=== PATIENT | female | born 1985 | race American Indian/Alaskan Native ===

== ENCOUNTER 2016-05-18 05:26 | Emergency (ER) | payer OTHER ==
[2016-05-18 06:26] LABS: Basophils % (Auto) 0.9 % (0.0-1.8); Eosinophils % (Auto) 0.4 % (0.0-4.3); Hematocrit 33.9 % (30.3-42.9); Hemoglobin 10.9 gm/dl (10.1-14.3); Mean Corpuscular HGB Conc 32 % (30-34); Mean Corpuscular Volume 80 fl (79-97); Platelet Count 382 K/mm3 (140-440); Red Blood Count 4.22 M/mm3 (3.65-5.03); Red Cell Distribution Width 17.3 % (13.2-15.2); White Blood Count 15.8 K/mm3 (4.5-11.0)
[2016-05-18 06:27] LABS: Mean Corpuscular Hemoglobin 26 pg (28-32)
[2016-05-18 06:41] LABS: Alanine Aminotransferase 157 units/L (7-56); Albumin 3.6 g/dL (3.9-5); Albumin/Globulin Ratio 0.9 %; Alkaline Phosphatase 167 units/L (35-129); Anion Gap 24 mmol/L; Bilirubin,Total 0.4 mg/dL (0.1-1.2); Blood Urea Nitrogen 11 mg/dL (7-17); Calcium 8.7 mg/dL (8.4-10.2); Carbon Dioxide 22 mmol/L (22-30); Chloride 89.9 mmol/L (98-107); Glucose 482 mg/dL (65-100); Lipase 21 units/L (13-60); Potassium 3.6 mmol/L (3.6-5.0); Sodium 132 mmol/L (137-145); Total Protein 7.6 g/dL (6.3-8.2)
[2016-05-18 10:22] LABS: Bilirubin,Urine NEG (Negative); Blood,Urine LG (Negative); Ketones,Urine 80 mg/dL (Negative); Leukocyte Esterase,Urine SM (Negative); Mucus,Urine FEW /HPF; Nitrite,Urine NEG (Negative); Urobilinogen,Urine < 2.0 mg/dL (<2.0)
[2016-05-18 10:25] LABS: WBC,Urine > 182.0 /HPF (0.0-6.0)
[2016-05-18] MEDS ORDERED: ZOFRAN IV ONE (10:48)
[2016-05-18] MEDS ORDERED: MORPHINE IV ONE (10:48)
[2016-05-18] MEDS ORDERED: NACL 0.9% 1000 ML 1,000 ML IV ONE (10:48)
--- NOTE | 2016-05-18 10:52 | Emergency Department Report ---
ED General Adult HPI - General Chief complaint: Abdominal Pain Stated complaint: HYPERGLYCEMIA Time Seen by Provider: 05/18/16 08:19 Source: EMS Mode of arrival: Stretcher Limitations: No Limitations - History of Present Illness Initial comments: 31-year-old female presents to the emergency department via EMS complaining of back pain. Patient reports the onset of lower back pain at approximately 8 PM last night. Patient describes a sharp pain that does not radiate. She reports associated nausea and vomiting. EMS reports that the patient had an elevated blood sugar of 442. There are no other complaints. -: Sudden, Last night Time: 20:00 Location: back Radiation: non-radiation Severity scale (0 -10): 6 Quality: aching Consistency: constant Improves with: none Worsens with: none Associated Symptoms: nausea/vomiting Treatments Prior to Arrival: none - Related Data Previous Rx's Medication Instructions Recorded Last Taken Type HYDROcodone/APAP 5-325 [[place] 1 each PO Q6HR PRN #20 tablet 05/18/16 Unknown Rx 5/325] Nitrofurantoin [place]/M-Cryst 100 mg PO Q12HR #14 capsule 05/18/16 Unknown Rx [Macrobid CAP] Promethazine [Phenergan TAB] 25 mg PO Q6HR PRN #20 tab 05/18/16 Unknown Rx Allergies Allergy/AdvReac Type Severity Reaction Status Date / Time No Known Allergies Allergy Unverified 05/18/16 05:51 ED Review of Systems ROS: Stated complaint: HYPERGLYCEMIA Other details as noted in HPI Comment: All other systems reviewed and negative Gastrointestinal: nausea, vomiting Musculoskeletal: back pain ED Past Medical Hx - Past Medical History Previous Medical History?: Yes Hx Hypertension: Yes Hx Diabetes: Yes Additional medical history: neuropathy, gastroparesis, acid reflux - Surgical History Past Surgical History?: No - Family History Family history: no significant - Social History Smoking Status: Never Smoker Substance Use Type: None - Medications Home Medications: Home Medications Medication Instructions Recorded Confirmed Last Taken Type HYDROcodone/APAP 5-325 [[place] 1 each PO Q6HR PRN #20 tablet 05/18/16 Unknown Rx 5/325] Nitrofurantoin [place]/M-Cryst 100 mg PO Q12HR #14 capsule 05/18/16 Unknown Rx [Macrobid CAP] Promethazine [Phenergan TAB] 25 mg PO Q6HR PRN #20 tab 05/18/16 Unknown Rx ED Physical Exam - General Limitations: No Limitations General appearance: alert, in no apparent distress - Head Head exam: Present: atraumatic, normocephalic - Eye Eye exam: Present: normal appearance, PERRL, EOMI - ENT ENT exam: Present: normal exam, normal orophraynx, mucous membranes moist - Neck Neck exam: Present: normal inspection, full ROM. Absent: tenderness - Respiratory Respiratory exam: Present: normal lung sounds bilaterally. Absent: respiratory distress - Cardiovascular Cardiovascular Exam: Present: regular rate, normal rhythm, normal heart sounds - GI/Abdominal GI/Abdominal exam: Present: soft, normal bowel sounds. Absent: distended, tenderness - Extremities Exam Extremities exam: Present: normal inspection, full ROM. Absent: tenderness - Back Exam Back exam: Present: normal inspection, full ROM. Absent: tenderness - Neurological Exam Neurological exam: Present: alert, oriented X3. Absent: motor sensory deficit - Skin Skin exam: Present: warm, dry, intact ED Course Vital Signs 05/18/16 05/18/16 05/18/16 05:51 05:58 06:00 Temperature 98.9 F Pulse Rate 103 H 106 H Respiratory 13 18 11 L Rate Blood Pressure 152/102 152/102 O2 Sat by Pulse 85 97 Oximetry 05/18/16 05/18/16 05/18/16 06:10 06:20 06:30 Temperature Pulse Rate 106 H 105 H 106 H Respiratory 18 27 H 26 H Rate Blood Pressure 151/99 159/104 159/104 O2 Sat by Pulse 100 99 100 Oximetry 05/18/16 05/18/16 05/18/16 06:40 06:50 07:00 Temperature Pulse Rate 108 H 109 H 108 H Respiratory 24 22 27 H Rate Blood Pressure 150/102 143/101 153/103 O2 Sat by Pulse 100 100 99 Oximetry 05/18/16 05/18/16 05/18/16 07:18 07:20 07:30 Temperature Pulse Rate 120 H 111 H 108 H Respiratory 30 H 21 26 H Rate Blood Pressure 143/101 143/101 143/101 O2 Sat by Pulse 100 97 100 Oximetry 05/18/16 05/18/16 05/18/16 07:40 07:50 08:00 Temperature Pulse Rate 109 H 109 H 111 H Respiratory 27 H 25 H 22 Rate Blood Pressure 136/85 136/85 137/83 O2 Sat by Pulse 100 100 99 Oximetry 05/18/16 05/18/16 05/18/16 08:10 08:24 08:30 Temperature Pulse Rate 112 H 121 H 115 H Respiratory 26 H 44 H 26 H Rate Blood Pressure 153/103 153/103 153/103 O2 Sat by Pulse 99 97 99 Oximetry ED Medical Decision Making - Lab Data Result diagrams: 05/18/16 06:08 05/18/16 06:08 - Medical Decision Making Lab results reviewed and discussed with the patient. Patient reports feeling better with medication and IV fluids. Patient will be discharged home at this time. - Differential Diagnosis DKA, occult infection, musculoskeletal back pain Critical care attestation.: If time is entered above; I have spent that time in minutes in the direct care of this critically ill patient, excluding procedure time. ED Disposition Clinical Impression: Acute cystitis without hematuria Diabetes mellitus with hyperglycemia Qualifiers: Diabetes mellitus type: type 1 Qualified Code(s): E10.65 - Type 1 diabetes mellitus with hyperglycemia Disposition: DISCHARGED TO HOME OR SELFCARE Is pt being admited?: No Condition: Stable Instructions: Urinary Tract Infection in Women (ED) Prescriptions: HYDROcodone/APAP 5-325 [[place] 5/325] 1 each PO Q6HR PRN #20 tablet PRN Reason: Pain Nitrofurantoin [place]/M-Cryst [Macrobid CAP] 100 mg PO Q12HR #14 capsule Promethazine [Phenergan TAB] 25 mg PO Q6HR PRN #20 tab PRN Reason: Nausea Referrals: PRIMARY CARE, [Primary Care Provider] - 3-5 Days Time of Disposition: 11:48
[2016-05-18 14:30] VITALS: BP 155/99
[2016-05-22 23:30] LABS: B-Hydroxybutyrate 3.3 mmol/L (0.2 - 0.28)
== END 2016-05-18 14:30 | disposition home or self-care (01) ==
LOC: ED 05:26
DX: N30.00 Acute cystitis without hematuria (principal); E10.65 Type 1 diabetes mellitus with hyperglycemia; I10 Essential (primary) hypertension; K21.9 Gastro-esophageal reflux disease without esophagitis
CPT/HCPCS: 36415; 80053; 81001; 81025; 82010; 82805; 82962; 83690; 85025; 96361; 96374; 96375; 99284; J2270; J2405; J7030

== ENCOUNTER 2017-02-05 13:03 | Emergency (ER) | payer OTHER ==
[2017-02-05] MEDS ORDERED: TYLENOL PO ONE (14:00)
--- NOTE | 2017-02-05 14:00 | Emergency Department Report ---
ED General Adult HPI - General Chief complaint: Hypoglycemia Stated complaint: SIZURE/LOW BLOOD SUGAR Time Seen by Provider: 02/05/17 13:48 Source: patient, family (history also obtained from patient's girlfriend), EMS ( ems notes not available at time of chart dictation), RN notes reviewed Mode of arrival: Stretcher Limitations: No Limitations - History of Present Illness Initial comments: This is a 31-year-old female. The patient is previously known to this provider , she is a past medical history of type 1 diabetes, and typically takes insulin , 70/30, 40 units in the morning, and 30 units at night. Presents to the ER with EMS with complaint of resolved hypoglycemia. Patient reports no changes to her medications recently. She reports eating last night and this morning. She reports not taking any prescription pill medications, and only the insulin as previously described. As per her girlfriend, patient was speaking strangely, not making sense, and had some shaking movements. She was found to be hypoglycemic by EMS, and was given dextrose in the field. This improved her symptoms. Patient denies severe headache, neck pain, chest pain, abdominal pain, shortness of breath, urinary symptoms. She has lower back pain which has been present for 1 month, it is achy, it has no exacerbating or relieving factors, it is intermittent, and it does not radiate anywhere. Girlfriend also reports that the patient had some convulsive activity on [facility]. -: Gradual Consistency: now resolved Improves with: medication Worsens with: none Associated Symptoms: seizure. denies: confusion, chest pain, cough, diaphoresis , fever/chills, headaches, loss of appetite, malaise, nausea/vomiting, rash, shortness of breath, syncope, weakness - Related Data Previous Rx's Medication Instructions Recorded Last Taken Type HYDROcodone/APAP 5-325 [[place] 1 each PO Q6HR PRN #20 tablet 05/18/16 Unknown Rx 5/325] Promethazine [Phenergan TAB] 25 mg PO Q6HR PRN #20 tab 05/18/16 Unknown Rx Nitrofurantoin [place]/M-Cryst 100 mg PO Q12HR #14 capsule 02/05/17 Unknown Rx [Macrobid CAP] Allergies Allergy/AdvReac Type Severity Reaction Status Date / Time No Known Allergies Allergy Unverified 05/18/16 05:51 ED Review of Systems ROS: Stated complaint: SIZURE/LOW BLOOD SUGAR Other details as noted in HPI ED Past Medical Hx - Past Medical History Hx Hypertension: Yes Hx Diabetes: Yes Additional medical history: neuropathy, gastroparesis, acid reflux - Social History Smoking Status: Never Smoker Substance Use Type: None - Medications Home Medications: Home Medications Medication Instructions Recorded Confirmed Last Taken Type HYDROcodone/APAP 5-325 [[place] 1 each PO Q6HR PRN #20 tablet 05/18/16 Unknown Rx 5/325] Promethazine [Phenergan TAB] 25 mg PO Q6HR PRN #20 tab 05/18/16 Unknown Rx Nitrofurantoin [place]/M-Cryst 100 mg PO Q12HR #14 capsule 02/05/17 Unknown Rx [Macrobid CAP] ED Physical Exam - General Limitations: No Limitations General appearance: alert, in no apparent distress - Head Head exam: Present: atraumatic, normocephalic - Eye Eye exam: Present: normal appearance, PERRL, EOMI. Absent: nystagmus - ENT ENT exam: Present: normal exam, normal orophraynx, mucous membranes moist, normal external ear exam - Neck Neck exam: Present: normal inspection, full ROM - Respiratory Respiratory exam: Present: normal lung sounds bilaterally. Absent: respiratory distress, chest wall tenderness - Cardiovascular Cardiovascular Exam: Present: normal rhythm, tachycardia, normal heart sounds. Absent: systolic murmur, diastolic murmur, rubs, gallop - GI/Abdominal GI/Abdominal exam: Present: soft, normal bowel sounds. Absent: distended, tenderness, guarding, rebound, rigid, pulsatile mass - Extremities Exam Extremities exam: Present: normal inspection, full ROM, normal capillary refill. Absent: pedal edema, joint swelling, calf tenderness - Back Exam Back exam: Present: normal inspection, full ROM. Absent: tenderness, CVA tenderness (R), paraspinal tenderness, vertebral tenderness - Neurological Exam Neurological exam: Present: alert, oriented X3, CN II-XII intact, normal gait, other (Extraocular movements intact. Tongue midline. No facial droop. Facial sensation intact to light touch in the V1, V2, V3 distribution bilaterally. 5 and 5 strength in 4 extremities.. Sensation is intact to light touch in 4 extremities.). Absent: motor sensory deficit - Psychiatric Psychiatric exam: Present: anxious - Skin Skin exam: Present: warm, dry, intact, normal color. Absent: rash ED Course Vital Signs 02/05/17 02/05/17 02/05/17 13:21 13:28 13:30 Temperature 97.8 F Pulse Rate 109 H 110 H 109 H Respiratory 18 19 Rate Blood Pressure 103/65 103/65 O2 Sat by Pulse 99 99 98 Oximetry 02/05/17 02/05/17 02/05/17 13:40 13:47 14:00 Temperature Pulse Rate 110 H 111 H Respiratory 18 23 17 Rate Blood Pressure 113/75 O2 Sat by Pulse 99 99 98 Oximetry 02/05/17 02/05/17 02/05/17 14:15 14:31 14:45 Temperature Pulse Rate 106 H 108 H 105 H Respiratory 17 22 16 Rate Blood Pressure 113/75 113/75 113/75 O2 Sat by Pulse 100 100 Oximetry 02/05/17 02/05/17 02/05/17 15:00 15:10 15:15 Temperature Pulse Rate 103 H 103 H Respiratory 17 18 18 Rate Blood Pressure 118/71 113/75 O2 Sat by Pulse 100 100 Oximetry - Reevaluation(s) Reevaluation #1: 02/05/17 14:50 Differential diagnosis, including without limited to: Urinary tract infection, hypoglycemia, now resolved, myositis, electrolyte derangement Assessment and plan: 31-year-old female with convulsive activity in context of hypoglycemia. Patient currently alert and oriented, clinically sober, walks with a steady gait, not intoxicated, GCS of 15, with NIH score of 0. Her laboratory studies so far are unremarkable, patient is tolerating oral feeds, and she is given IV dextrose prior to my evaluation. She is eating as well, and we will decrease the patient's insulin to 20 units in the morning, 15 units at night, and she reports that she has follow-up primary care doctor on February 09. She is with her girlfriend who feels comfortable to watch over her, and the girlfriend reports that she can monitor the patient's sugar at home if necessary. Her tachycardia has resolved. Reevaluation #2: 02/05/17 15:47 Feeling improved. Walking with a steady gait. Urinalysis suggests asymptomatic bacteriuria, however given otherwise unexplained episodes of hypoglycemia, patient will be treated empirically. She will be given Macrobid. She feels improved, and is suitable for discharge at this time, her girlfriend is going to watch over her this evening, return precautions are reviewed. ED Medical Decision Making - Lab Data Result diagrams: 02/05/17 13:51 02/05/17 13:51 Vital Signs 02/05/17 02/05/17 02/05/17 13:21 13:40 13:47 Temperature 97.8 F Pulse Rate 109 H 110 H Respiratory 18 18 23 Rate Blood Pressure 103/65 O2 Sat by Pulse 99 99 99 Oximetry Lab Results 02/05/17 02/05/17 Range/Units 13:51 13:51 WBC 11.6 H (4.5-11.0) K/mm3 RBC 4.19 (3.65-5.03) M/mm3 Hgb 11.5 (10.1-14.3) gm/dl Hct 35.8 (30.3-42.9) % MCV 85 (79-97) fl MCH 27 L (28-32) pg MCHC 32 (30-34) % RDW 15.0 (13.2-15.2) % Plt Count 345 (140-440) K/mm3 Lymph % (Auto) 6.8 L (13.4-35.0) % [place] % (Auto) 3.7 (0.0-7.3) % Eos % (Auto) 0.6 (0.0-4.3) % Baso % (Auto) 0.3 (0.0-1.8) % Lymph # 0.8 L (1.2-5.4) K/mm3 [place] # 0.4 (0.0-0.8) K/mm3 Eos # 0.1 (0.0-0.4) K/mm3 Baso # 0.0 (0.0-0.1) K/mm3 Seg Neutrophils % 88.6 H (40.0-70.0) % Seg Neutrophils # 10.3 H (1.8-7.7) K/mm3 Sodium 140 (137-145) mmol/L Potassium 4.2 (3.6-5.0) mmol/L Chloride 102.1 (98-107) mmol/L Carbon Dioxide 25 (22-30) mmol/L Anion Gap 17 mmol/L BUN 12 (7-17) mg/dL Creatinine 0.7 (0.7-1.2) mg/dL Estimated GFR > 60 ml/min BUN/Creatinine Ratio 17 % Glucose 81 (65-100) mg/dL Calcium 8.9 (8.4-10.2) mg/dL Critical care attestation.: If time is entered above; I have spent that time in minutes in the direct care of this critically ill patient, excluding procedure time. ED Disposition Clinical Impression: History of hypoglycemia Disposition: TO HOME OR SELFCARE Is pt being admited?: No Does the pt Need Aspirin: No Condition: Good Instructions: Diabetic Hypoglycemia (ED) Additional Instructions: Decrease insulin 70/30 to 20 units in the morning, and 15 units each evening. Do not drive her car to the next 6 months unless cleared by a primary care doctor to do so. Do not operate motor vehicles for the next 6 months unless cleared by her primary care doctor to do so. Follow-up with your primary care doctor appointment on February 09 as scheduled, for within the next 7-10 days with a local primary care doctor. Make certain to eat at least 3 full meals a day, and return to the ER right away with fevers , chills, lethargy, irritability, projectile vomiting, change in mental status, confusion, inability to tolerate liquid feeds. Laboratory studies were unremarkable with the exception of urinalysis, and this suggested a urinary tract infection. Take antibiotics as directed, take the pain medication as directed Referrals: LILIBETH CORDERO MD [Primary Care Provider] - 3-5 Days [facility] [Provider Group] - 3-5 Days HARRIET PACK MD [Staff Physician] - 3-5 Days
[2017-02-05 14:10] LABS: Basophils % (Auto) 0.3 % (0.0-1.8); Eosinophils # (Auto) 0.1 K/mm3 (0.0-0.4); Eosinophils % (Auto) 0.6 % (0.0-4.3); Hematocrit 35.8 % (30.3-42.9); Hemoglobin 11.5 gm/dl (10.1-14.3); Lymphocytes # (Auto) 0.8 K/mm3 (1.2-5.4); Lymphocytes % (Auto) 6.8 % (13.4-35.0); Mean Corpuscular HGB Conc 32 % (30-34); Mean Corpuscular Hemoglobin 27 pg (28-32); Mean Corpuscular Volume 85 fl (79-97); Monocytes # (Auto) 0.4 K/mm3 (0.0-0.8); Monocytes % (Auto) 3.7 % (0.0-7.3); Platelet Count 345 K/mm3 (140-440); Red Blood Count 4.19 M/mm3 (3.65-5.03)
[2017-02-05 14:24] LABS: BUN/Creatinine Ratio 17; Blood Urea Nitrogen 12 mg/dL (7-17); Calcium 8.9 mg/dL (8.4-10.2); Hemolysis Index 30
[2017-02-05] MEDS ORDERED: D5/0.45NS 1,000 ML IV SCH (15:00)
[2017-02-05] MEDS ORDERED: NACL 0.9% 1000 ML 1,000 ML ONE (15:08)
[2017-02-05 15:10] LABS: Bacteria,Urine 1+ /HPF (Negative); Bilirubin,Urine NEG (Negative); Blood,Urine SM (Negative); Color,Urine Yellow (Yellow); Mucus,Urine 1+ /HPF; Nitrite,Urine NEG (Negative); Urobilinogen,Urine < 2.0 mg/dL (<2.0)
[2017-02-05] MEDS ORDERED: NACL 0.9% 1000 ML 1,000 ML IV ONE (15:11)
[2017-02-05 16:12] VITALS: BP 107/74
== END 2017-02-05 16:13 | disposition home or self-care (01) ==
LOC: ED 13:03
DX: E10.649 Type 1 diabetes mellitus with hypoglycemia without coma (principal); Z79.4 Long term (current) use of insulin; I10 Essential (primary) hypertension; K21.9 Gastro-esophageal reflux disease without esophagitis; E10.40 Type 1 diabetes mellitus with diabetic neuropathy, unspecified; G62.9 Polyneuropathy, unspecified; E10.43 Type 1 diabetes mellitus with diabetic autonomic (poly)neuropathy; K31.84 Gastroparesis
CPT/HCPCS: 36415; 80048; 81001; 82550; 82962; 84702; 85025; 96360; 99284; J7030

== ENCOUNTER 2017-02-19 12:48 | Inpatient (IN) | payer OTHER ==
[2017-02-19] MEDS ORDERED: D50W (25GM) Syringe IV ONE ×3 (13:01→15:28)
--- NOTE | 2017-02-19 13:01 | Emergency Department Report ---
ED Altered Mental Status HPI - General Stated Complaint: HYPOGLYCEMIA Time Seen by Provider: 02/19/17 13:01 - History of Present Illness Initial Comments: Patient is a 31-year-old insulin-dependent diabetic who is presenting with seizure also. The patient was noted at home to be seizing. Patient's blood sugar read low EMS was unable to establish IV but did give 2 of Versed IM for his seizure. Patient is postictal at this time and is unable to give any additional history herself. There is no family at bedside. - Related Data Previous Rx's Medication Instructions Recorded Last Taken Type HYDROcodone/APAP 5-325 [[place] 1 each PO Q6HR PRN #20 tablet 05/18/16 Unknown Rx 5/325] Promethazine [Phenergan TAB] 25 mg PO Q6HR PRN #20 tab 05/18/16 Unknown Rx Nitrofurantoin [place]/M-Cryst 100 mg PO Q12HR #14 capsule 02/05/17 Unknown Rx [Macrobid CAP] Allergies Allergy/AdvReac Type Severity Reaction Status Date / Time No Known Allergies Allergy Unverified 02/19/17 13:10 ED Review of Systems ROS: Stated complaint: HYPOGLYCEMIA Other details as noted in HPI Comment: Unobtainable due to pts medical conditions ED Past Medical Hx - Past Medical History Hx Hypertension: Yes Hx Diabetes: Yes Additional medical history: neuropathy, gastroparesis, acid reflux - Social History Smoking Status: Never Smoker Substance Use Type: None - Medications Home Medications: Home Medications Medication Instructions Recorded Confirmed Last Taken Type HYDROcodone/APAP 5-325 [[place] 1 each PO Q6HR PRN #20 tablet 05/18/16 Unknown Rx 5/325] Promethazine [Phenergan TAB] 25 mg PO Q6HR PRN #20 tab 05/18/16 Unknown Rx Nitrofurantoin [place]/M-Cryst 100 mg PO Q12HR #14 capsule 02/05/17 Unknown Rx [Macrobid CAP] ED Physical Exam - General General appearance: alert, postictal - Head Head exam: Present: atraumatic, normocephalic - Eye Eye exam: Present: normal appearance - ENT ENT exam: Present: mucous membranes moist - Neck Neck exam: Present: normal inspection - Respiratory Respiratory exam: Present: normal lung sounds bilaterally. Absent: respiratory distress, wheezes, rales, rhonchi - Cardiovascular Cardiovascular Exam: Present: regular rate, normal rhythm. Absent: systolic murmur, diastolic murmur, rubs, gallop - GI/Abdominal GI/Abdominal exam: Present: soft, normal bowel sounds - Extremities Exam Extremities exam: Present: normal inspection - Back Exam Back exam: Present: normal inspection - Neurological Exam Neurological exam: Present: altered - Psychiatric Psychiatric exam: Present: normal affect, normal mood - Skin Skin exam: Present: warm, dry, intact, normal color. Absent: rash ED Course Vital Signs 02/19/17 02/19/17 12:48 13:15 Temperature 98.1 F Pulse Rate 97 H Respiratory 16 16 Rate Blood Pressure 111/68 O2 Sat by Pulse 100 100 Oximetry - Lab Data Result diagrams: 02/19/17 14:06 02/19/17 14:06 Lab Results 02/19/17 02/19/17 Range/Units 14:06 14:06 WBC 10.8 (4.5-11.0) K/mm3 RBC 4.17 (3.65-5.03) M/mm3 Hgb 11.3 (10.1-14.3) gm/dl Hct 35.5 (30.3-42.9) % MCV 85 (79-97) fl MCH 27 L (28-32) pg MCHC 32 (30-34) % RDW 15.5 H (13.2-15.2) % Plt Count 367 (140-440) K/mm3 Lymph % (Auto) 13.9 (13.4-35.0) % [place] % (Auto) 6.0 (0.0-7.3) % Eos % (Auto) 0.6 (0.0-4.3) % Baso % (Auto) 0.7 (0.0-1.8) % Lymph # 1.5 (1.2-5.4) K/mm3 [place] # 0.7 (0.0-0.8) K/mm3 Eos # 0.1 (0.0-0.4) K/mm3 Baso # 0.1 (0.0-0.1) K/mm3 Seg Neutrophils % 78.8 H (40.0-70.0) % Seg Neutrophils # 8.5 H (1.8-7.7) K/mm3 Sodium 139 (137-145) mmol/L Potassium 3.2 L (3.6-5.0) mmol/L Chloride 100.4 (98-107) mmol/L Carbon Dioxide 22 (22-30) mmol/L Anion Gap 20 mmol/L BUN 10 (7-17) mg/dL Creatinine 0.5 L (0.7-1.2) mg/dL Estimated GFR > 60 ml/min BUN/Creatinine Ratio 20 % Glucose 42 L (65-100) mg/dL Calcium 8.6 (8.4-10.2) mg/dL - Medical Decision Making Patient had IV established by us of and was given an amp of D50. Patient became much more alert. After approximately 30 minutes patient was back to baseline patient was able to eat however rechecking her blood sugars she was still in the 50s. An additional half amp of D50 as well as D5 normal saline will be started. Patient be admitted at this time. Critical Care Time: Yes Critical care time in (mins) excluding proc time.: 30 Critical care attestation.: If time is entered above; I have spent that time in minutes in the direct care of this critically ill patient, excluding procedure time. ED Disposition Clinical Impression: Hypoglycemia Disposition: DC-09 OP ADMIT IP TO THIS HOSP Is pt being admited?: Yes Does the pt Need Aspirin: No Condition: Fair
[2017-02-19 14:26] LABS: Basophils # (Auto) 0.1 K/mm3 (0.0-0.1); Basophils % (Auto) 0.7 % (0.0-1.8); Eosinophils # (Auto) 0.1 K/mm3 (0.0-0.4); Eosinophils % (Auto) 0.6 % (0.0-4.3); Hematocrit 35.5 % (30.3-42.9); Hemoglobin 11.3 gm/dl (10.1-14.3); Lymphocytes # (Auto) 1.5 K/mm3 (1.2-5.4); Lymphocytes % (Auto) 13.9 % (13.4-35.0); Mean Corpuscular HGB Conc 32 % (30-34); Mean Corpuscular Hemoglobin 27 pg (28-32); Mean Corpuscular Volume 85 fl (79-97); Monocytes # (Auto) 0.7 K/mm3 (0.0-0.8); Platelet Count 367 K/mm3 (140-440); Red Blood Count 4.17 M/mm3 (3.65-5.03); Red Cell Distribution Width 15.5 % (13.2-15.2)
[2017-02-19 14:58] LABS: BUN/Creatinine Ratio 20; Blood Urea Nitrogen 10 mg/dL (7-17); Calcium 8.6 mg/dL (8.4-10.2); Hemolysis Index 33
[2017-02-19] MEDS ORDERED: D5NS 1,000 ML IV SCH ×2 (16:00→17:00)
--- NOTE | 2017-02-19 22:44 | History and Physical Report ---
History of Present Illness Date of examination: 02/19/17 Date of admission: 02/19/17 16:20 Chief complaint: CC Hypoglycemia and seizures History of present illness: History of Present Illness Patient is a 31-year-old insulin-dependent diabetic who is presenting with seizure also. The patient was noted at home to be seizing. Patient's blood sugar read low EMS was unable to establish IV but did give 2 of Versed IM for seizures. Patient is postictal at this time and is unable to give any additional history herself. There is no family at bedside. Past Medical History Hx Hypertension: Yes Hx Diabetes: Yes Additional medical history: neuropathy, gastroparesis, acid reflux - Social History Smoking Status: Never Smoker Substance Use Type: None Fam Hx Htn - Medications Home Medications: Home Medications Medication Instructions Recorded Confirmed Last Taken Type HYDROcodone/APAP 5-325 [Randolph 1 each PO Q6HR PRN #20 tablet 05/18/16 Unknown Rx 5/325] Promethazine [Phenergan TAB] 25 mg PO Q6HR PRN #20 tab 05/18/16 Unknown Rx Nitrofurantoin [place]/M-Cryst 100 mg PO Q12HR #14 capsule 02/05/17 Unknown Rx [Macrobid CAP] Medications and Allergies Allergies Allergy/AdvReac Type Severity Reaction Status Date / Time No Known Allergies Allergy Unverified 02/19/17 13:10 Home Medications Medication Instructions Recorded Confirmed Last Taken Type HYDROcodone/APAP 5-325 [Randolph 1 each PO Q6HR PRN #20 tablet 05/18/16 Unknown Rx 5/325] Promethazine [Phenergan TAB] 25 mg PO Q6HR PRN #20 tab 05/18/16 Unknown Rx Nitrofurantoin [place]/M-Cryst 100 mg PO Q12HR #14 capsule 02/05/17 Unknown Rx [Macrobid CAP] Active Meds: Active Medications Dextrose/Sodium Chloride (D5ns) 1,000 mls @ 100 mls/hr IV DIRECT KINSEY Last Admin: 02/19/17 18:45 Dose: 100 mls/hr Review of Systems All systems: negative Neurological: seizures, change in mentation (sec to Hypoglycemia), confusion Exam - Constitutional Vitals: Temp Pulse Resp BP Pulse Ox 98.1 F 92 H 14 120/73 100 02/19/17 12:48 02/19/17 22:00 02/19/17 22:00 02/19/17 22:00 02/19/17 22:00 General appearance: Present: no acute distress, mild distress, disheveled - EENT Eyes: Present: PERRL ENT: hearing intact, clear oral mucosa - Neck Neck: Present: supple, normal ROM - Respiratory Respiratory effort: normal Respiratory: bilateral: CTA - Cardiovascular Heart rate: 80 Rhythm: regular Heart Sounds: Present: S1 & S2. Absent: rub, click - Extremities Extremities: pulses symmetrical, No edema Peripheral Pulses: within normal limits - Abdominal General gastrointestinal: Present: soft, non-tender, non-distended, normal bowel sounds Female genitourinary: Present: normal - Rectal Rectal Exam: deferred - Integumentary Integumentary: Present: clear, warm, dry - Musculoskeletal Musculoskeletal: generalized weakness - Psychiatric Psychiatric: other (Post ictal and decreased responsiveness) - Neurologic Neurologic: CNII-XII intact, moves all extremities Results - Labs CBC & Chem 7: 02/19/17 14:06 02/19/17 14:06 Labs: Laboratory Last Values WBC 10.8 K/mm3 (4.5-11.0) 02/19/17 14:06 RBC 4.17 M/mm3 (3.65-5.03) 02/19/17 14:06 Hgb 11.3 gm/dl (10.1-14.3) 02/19/17 14:06 Hct 35.5 % (30.3-42.9) 02/19/17 14:06 MCV 85 fl (79-97) 02/19/17 14:06 MCH 27 pg (28-32) L 02/19/17 14:06 MCHC 32 % (30-34) 02/19/17 14:06 RDW 15.5 % (13.2-15.2) H 02/19/17 14:06 Plt Count 367 K/mm3 (140-440) 02/19/17 14:06 Lymph % (Auto) 13.9 % (13.4-35.0) 02/19/17 14:06 [place] % (Auto) 6.0 % (0.0-7.3) 02/19/17 14:06 Eos % (Auto) 0.6 % (0.0-4.3) 02/19/17 14:06 Baso % (Auto) 0.7 % (0.0-1.8) 02/19/17 14:06 Lymph # 1.5 K/mm3 (1.2-5.4) 02/19/17 14:06 [place] # 0.7 K/mm3 (0.0-0.8) 02/19/17 14:06 Eos # 0.1 K/mm3 (0.0-0.4) 02/19/17 14:06 Baso # 0.1 K/mm3 (0.0-0.1) 02/19/17 14:06 Seg Neutrophils % 78.8 % (40.0-70.0) H 02/19/17 14:06 Seg Neutrophils # 8.5 K/mm3 (1.8-7.7) H 02/19/17 14:06 Sodium 139 mmol/L (137-145) 02/19/17 14:06 Potassium 3.2 mmol/L (3.6-5.0) L 02/19/17 14:06 Chloride 100.4 mmol/L (98-107) 02/19/17 14:06 Carbon Dioxide 22 mmol/L (22-30) 02/19/17 14:06 Anion Gap 20 mmol/L 02/19/17 14:06 BUN 10 mg/dL (7-17) 02/19/17 14:06 Creatinine 0.5 mg/dL (0.7-1.2) L 02/19/17 14:06 Estimated GFR > 60 ml/min 02/19/17 14:06 BUN/Creatinine Ratio 20 % 02/19/17 14:06 Glucose 42 mg/dL (65-100) L 02/19/17 14:06 POC Glucose 159 (70-105) H 02/19/17 19:22 Calcium 8.6 mg/dL (8.4-10.2) 02/19/17 14:06 Short CBC 02/19/17 Range/Units 14:06 WBC 10.8 (4.5-11.0) K/mm3 Hgb 11.3 (10.1-14.3) gm/dl Hct 35.5 (30.3-42.9) % Plt Count 367 (140-440) K/mm3 BMP 02/19/17 14:06 Sodium 139 Potassium 3.2 L Chloride 100.4 Carbon Dioxide 22 BUN 10 Creatinine 0.5 L Glucose 42 L Calcium 8.6 - Imaging and Cardiology Chest x-ray: report reviewed Assessment and Plan Advance Directives: Yes (ull code) VTE prophylaxis?: Chemical Plan of care discussed with patient/family: Yes - Patient Problems (1) Acute metabolic encephalopathy Current Visit: Yes Status: Acute Plan to address problem: Sec to Hypoglycemia Correct Hypoglycemia Adjust insulin dosage and encourage compliance with diet and Meds (2) Hypoglycemia Current Visit: Yes Status: Acute Plan to address problem: D5w IV infusion at 100 ml/hr Adjust insulin dosage Also education (3) Seizure disorder Current Visit: Yes Status: Acute Plan to address problem: Keppra IV/PO (4) IDDM (insulin dependent diabetes mellitus) Current Visit: Yes Status: Chronic Plan to address problem: Adjust dosage A1c oredered (5) Gastroparesis Current Visit: Yes Status: Chronic Plan to address problem: Home meds not available to reconcile (6) HTN (hypertension) Current Visit: Yes Status: Chronic Qualifiers: Hypertension type: essential hypertension Qualified Code(s): I10 - Essential (primary) hypertension (7) Peripheral neuropathy Current Visit: Yes Status: Chronic Qualifiers: Peripheral neuropathy type: polyneuropathy, unspecified Qualified Code(s): G62.9 - Polyneuropathy, unspecified (8) DVT prophylaxis Current Visit: Yes Status: Acute Plan to address problem: On Lovenox
[2017-02-20 06:06] VITALS: BP 115/75
[2017-02-20] MEDS ORDERED: PHENERGAN PO PRN (06:39)
[2017-02-20] MEDS ORDERED: NORCO 5/325 PO PRN (06:39)
[2017-02-20] MEDS ORDERED: MILK OF MAGNESIA PO PRN (06:44)
[2017-02-20] MEDS ORDERED: REGLAN IV PRN (06:44)
[2017-02-20] MEDS ORDERED: TYLENOL PO PRN (06:44)
[2017-02-20] MEDS ORDERED: ZOFRAN IV PRN (06:44)
[2017-02-20] MEDS ORDERED: DULCOLAX PR PRN (06:44)
[2017-02-20] MEDS ORDERED: NOVOLOG SUB-Q SCH (07:30)
[2017-02-20] MEDS ORDERED: KEPPRA PO SCH (10:00)
[2017-02-20] MEDS ORDERED: KEPPRA 750 MG in NACL 0.9% 100 ML IV SCH (10:00)
[2017-02-20] MEDS ORDERED: MACROBID PO SCH (10:00)
--- NOTE | 2017-02-20 10:44 | Discharge Summary ---
Providers - Providers Date of Admission: 02/19/17 16:20 Date of discharge: 02/20/17 Attending physician: RAMSEY SHINE 02/20/17 06:45 Consult to Dietitian/Nutrition [CONS] Routine Physician Instructions: Reason For Exam: Reason for Consult: Diet education Primary care physician: SLEEVE BOTTOM FELLER Hospitalization Condition: Fair Hospital course: Discharge Diagnosis: /Acute metabolic encephalopathy Sec to Hypoglycemia /Hypoglycemia s/p D5w IV infusion at 100 ml/hr Adjusted insulin dosage /hypoglycemia induced Seizure /IDDM (insulin dependent diabetes mellitus) /Gastroparesis / HTN (hypertension) / Peripheral neuropathy Disposition: DC-01 TO HOME OR SELFCARE Time spent for discharge: 32 minutes Core Measure Documentation - Palliative Care Palliative Care/ Comfort Measures: Not Applicable - Core Measures Any of the following diagnoses?: none Exam - Constitutional Vitals: Temp Pulse Resp BP Pulse Ox 98.1 F 92 H 22 115/75 100 02/19/17 12:48 02/20/17 06:00 02/20/17 06:00 02/20/17 06:00 02/20/17 05:00 General appearance: Present: no acute distress, well-nourished - EENT Eyes: Present: PERRL ENT: hearing intact, clear oral mucosa - Neck Neck: Present: supple, normal ROM - Respiratory Respiratory effort: normal Respiratory: bilateral: CTA - Cardiovascular Heart Sounds: Present: S1 & S2. Absent: rub, click - Extremities Extremities: pulses symmetrical, No edema Peripheral Pulses: within normal limits - Abdominal General gastrointestinal: Present: soft, non-tender, non-distended, normal bowel sounds - Integumentary Integumentary: Present: clear, warm, dry - Musculoskeletal Musculoskeletal: gait normal, strength equal bilaterally - Psychiatric Psychiatric: appropriate mood/affect, intact judgment & insight - Neurologic Neurologic: CNII-XII intact, moves all extremities Plan Activity: advance as tolerated Weight Bearing Status: Weight Bear as Tolerated Diet: diabetic Additional Instructions: avoid driving till f/u with PCP. Resume home meds. Do SSI only till f/u with PCP Follow up with: PRIMARY CARE, [Primary Care Provider] - 7 Days Prescriptions: Insulin Regular, Human [Novolin R] See Protocol SC ACHS #1 vial
[2017-02-20] MEDS ORDERED: K-DUR PO ONE (11:00)
[2017-02-20] MEDS ORDERED: KEPPRA 750 MG in D5W 100 ML IV SCH (11:00)
== END 2017-02-20 12:43 | disposition home or self-care (01) | DRG 637 ==
LOC: ED 12:48 → 3A 16:20
PROVIDERS: ADMIT Internal Medicine; ATTEND Internal Medicine
DX: E11.649 Type 2 diabetes mellitus with hypoglycemia without coma (principal); G93.41 Metabolic encephalopathy; E11.43 Type 2 diabetes mellitus with diabetic autonomic (poly)neuropathy; G40.909 Epilepsy, unspecified, not intractable, without status epilepticus; E11.42 Type 2 diabetes mellitus with diabetic polyneuropathy; K31.84 Gastroparesis; Z82.49 Family history of ischemic heart disease and other diseases of the circulatory system; Z79.899 Other long term (current) drug therapy
CPT/HCPCS: 36415; 80048; 82962; 85025; 96372; 96374; 96376; 99291; J1815; J1953; J7042